=== PATIENT | female | born 1995 | race Caucasian/White ===

== ENCOUNTER 2021-02-03 15:46 | Emergency (ER) | payer SELFPAY ==
[~2021-02-03] VITALS: Ht 157.5 cm; Wt 63.5 kg
[2021-02-03 15:46] VITALS: BP_SYST 119
[2021-02-03 15:55] VITALS: BP_SYST 119
== END 2021-02-03 15:55 ==
LOC: SED 15:46
DX: O9A.211 Injury, poisoning and certain other consequences of external causes complicating pregnancy, first trimester (principal); S40.022A Contusion of left upper arm, initial encounter; Z3A.01 Less than 8 weeks gestation of pregnancy; Y04.0XXA Assault by unarmed brawl or fight, initial encounter; Y93.89 Activity, other specified; Y92.89 Other specified places as the place of occurrence of the external cause; Y99.8 Other external cause status
CPT/HCPCS: 99283

== ENCOUNTER 2021-02-04 09:59 | Emergency (ER) | payer SELFPAY ==
[~2021-02-04] VITALS: Ht 157.5 cm; Wt 61.2 kg
[2021-02-04 10:05] VITALS: BP_SYST 132
[2021-02-04] MEDS ORDERED: ONDANSETRON 4 MG ODT TAB PO ONE (10:15)
[2021-02-04 10:33] LABS: BASOPHILS # (AUTO) 0.1 K/uL (0.0-0.2); BASOPHILS % (AUTO) 0.8 % (0.0-2.0); EOSINOPHILS % (AUTO) 0.2 % (0.0-4.0); HEMOGLOBIN 13.1 g/dL (12.0-16.0); LYMPHOCYTES # (AUTO) 1.1 K/uL (1.0-5.5); LYMPHOCYTES % (AUTO) 8.9 % (20.5-51.5); MEAN CORPUSCULAR HEMOGLOBIN 29 pg (27-31); MEAN CORPUSCULAR HGB CONC 33 % (32-36); MEAN CORPUSCULAR VOLUME 88 fL (79.0-98.0); MONOCYTES # (AUTO) 0.5 K/uL (0.0-1.0); MONOCYTES % (AUTO) 4.3 % (1.7-9.3); NEUTROPHILS # (AUTO) 10.5 K/uL (1.8-7.7); NEUTROPHILS % (AUTO) 85.8 % (40.0-70.0); PLATELET COUNT (AUTO) 258 K/uL (130-430); RED BLOOD CELL COUNT(AUTO) 4.54 MIL/uL (4.2-6.2); RED CELL DISTRIBUTION WIDTH 12.8 % (9.0-15.0); WHITE BLOOD COUNT (AUTO) 12.3 K/uL (4.8-10.8)
[2021-02-04 10:43] LABS: BILIRUBIN,URINE NEGATIVE (NEGATIVE); BLOOD, URINE NEGATIVE (NEGATIVE); COLOR,URINE YELLOW (YELLOW); GLUCOSE,URINE NEGATIVE (NEGATIVE); KETONES,URINE NEGATIVE (NEGATIVE); LEUKOCYTE ESTERASE ,URINE NEGATIVE (NEGATIVE); NITRITE, URINE NEGATIVE (NEGATIVE); PH,URINE 8.5 (5.0-8.0); PROTEIN URINE NEGATIVE (NEGATIVE); UROBILINOGEN,URINE 0.2 (0.2-1.0)
[2021-02-04 10:44] LABS: ANION GAP 12 (5-15); CALCIUM 8.8 mg/dL (8.4-11.0); CHLORIDE 101 mmol/L (98-107); CREATININE 0.78 mg/dL (0.55-1.30); GLUCOSE 89 mg/dL (70-99); SODIUM SERUM 138 mmol/L (136-145); UREA NITROGEN, BLOOD 13 mg/dL (8-21)
[2021-02-04 10:47] LABS: GFR AFRICAN AMERICAN 117 mL/min (>90)
[2021-02-04 10:48] LABS: CLARITY/URINE SLIGHTLY HAZY (CLEAR)
[2021-02-04 10:56] LABS: ACETONE, SERUM NEGATIVE (NEGATIVE)
[2021-02-04 11:12] LABS: ALANINE AMINOTRANSFERASE 26 U/L (12-78); ALBUMIN 3.6 g/dL (3.4-4.8); AMYLASE 45 U/L (0-100); ASPARTATE AMINOTRANSFERASE 16 U/L (10-37); LIPASE 60 U/L (73-393); TOTAL BILIRUBIN 0.5 mg/dL (0.0-1.0)
[2021-02-04 11:35] VITALS: BP_SYST 132
[2021-02-04 12:26] LABS: HCG,QUANTITATIVE 144211 mIU/ML (0-6)
== END 2021-02-04 11:36 | disposition home or self-care (01) ==
LOC: SED 09:59
DX: O21.0 Mild hyperemesis gravidarum (principal); Z3A.08 8 weeks gestation of pregnancy
CPT/HCPCS: 36415; 76815; 80053; 81003; 81025; 82009; 82150; 83605; 83690; 84702; 85025; 99284; Q0162

== ENCOUNTER 2021-10-13 20:03 | Emergency (ER) | payer BC, SELFPAY ==
[~2021-10-13] VITALS: Ht 157.5 cm; Wt 59.0 kg
[2021-10-13 20:06] VITALS: BP_SYST 122
--- NOTE | 2021-10-13 20:06 | NUR ---
Patient to [facility] chair to gown for evaluation. Side rails up.
--- NOTE | 2021-10-13 20:08 | NUR ---
LUIS FELIPE Greene examining patient in the [address].
[2021-10-13 20:33] VITALS: BP_SYST 121
--- NOTE | 2021-10-13 20:33 | NUR ---
Patient given written and verbal discharge instructions and verbalizes understanding. ER MD discussed with patient the results and treatment provided. Patient in stable condition. ID arm band removed. no Rx of given. Patient educated on pain management and to follow up with PMD. Pain Scale 0/10. Opportunity for questions provided and answered. Medication side effect fact sheet provided.
== END 2021-10-13 20:33 ==
LOC: SED 20:03
DX: Z02.89 Encounter for other administrative examinations (principal); J45.909 Unspecified asthma, uncomplicated
CPT/HCPCS: 99283